=== PATIENT | male | born 1935 | race Caucasian/White ===

== ENCOUNTER → 2021-04-12 09:02 | Outpatient (CLI) | payer MEDICARE, BC, SELFPAY ==
--- NOTE | 2021-04-12 | DI.ECHO.S_ITS ---
[facility]---------[facility] +---------+ : : [address] : : : : [id number] : : : : Phone: [phone]---------+ Echocardiogram Report + + :Name: YAA FREEMAN Study Date: 04/12/2021 Height: 66 in : :[facility] ReadingLocation: Weight: 162 lb : : Gender: Male BSA: 1.8 m2 : :: 1935 Age: 85 yrs BP: 170/98 mmHg: :Reason For Study: MURMUR : :Ordering Physician: SHANTAL, : :ARPAN Performed By: Laisha Swann : :Referring: ARPAN GRAY : + + Interpretation Summary 1) Normal left ventricular thickness, size, wall motion, and systolic function (EF 60-65%). 2) Normal right ventricular size and function. 3) Moderate biatrial enlargement present. 4) There is mild aortic stenosis (valve area 1.5cm2, mean gradient 12mmHg, severity ratio 0.4). 5) Hypertension present during the study (170/98mmHg). 6) No prior Echo available for comparison. Procedure: A two-dimensional transthoracic echocardiogram with color flow and Doppler was performed. The study quality was technically adequate. There is no prior echocardiogram noted for this patient. The patient was in sinus rhythm with heart rates between 49-60 bpm during the exam. Left Ventricle: The left ventricle is normal in size and wall thickness. The ejection fraction is estimated to be 55-60%. Diastolic function could not be accurately assessed due to atrial fibrillation. Right Ventricle: The right ventricle is normal in size and function. Atria: The left atrium is moderately dilated. The right atrium is moderately dilated. There is no Doppler evidence for an interatrial shunt. Mitral Valve: The mitral valve is normal in structure and function. There is mild mitral regurgitation. Aortic Valve: The aortic valve is moderately calcified. The aortic valve is trileaflet. The peak aortic velocity is 2.4 m/sec. The aortic valve mean gradient is 12 mmHg. The calculated aortic valve area is 1.5 cm2. There is mild aortic stenosis. No aortic regurgitation is present. Tricuspid Valve: The tricuspid valve is normal in structure and function. There is mild tricuspid regurgitation. The right ventricular systolic pressure is estimated to be at least 29 mmHg based on an estimated right atrial pressure of 8 mm Hg. Pulmonic Valve: The pulmonic valve leaflets are thin and pliable; valve motion is normal. There is mild pulmonic regurgitation. Great Vessels: The aortic root is normal size. The ascending aorta is at the upper limits of normal in size. The IVC is dilated (diameter is greater than 2.1 cm) yet it collapses greater than 50% with a sniff. This suggests a right atrial pressure of 8 mm Hg. Pericardium/ Pleura There is no pericardial effusion. There is no pleural effusion. MMode/2D Measurements & Calculations LVIDd: 5.2 cm LVOT diam: 2.0 cm LVIDs: 3.4 cm Ao root diam: 3.8 cm FS: 34.5 % asc Aorta Diam: 3.7 cm IVSd: 1.0 cm Ao Arch Diam (Prox Trans): 3.5 cm LVPWd: 0.76 cm LV torres. diameter/BSA (cm/m^2): 2.8 LV sys. diameter/BSA (cm/m^2): 1.8 LA A2 area: 26.6 cm2 RA long axis: 6.5 cm LA A4 area: 26.9 cm2 RA area: 25.1 cm2 LA length (vol): 7.0 cm RA vol: 82.5 ml LA vol: 87.3 ml RA : 45.1 ml/m2 LA vol index: 47.8 ml/m2 IVC diam: 2.4 cm RVD1 (basal): 3.5 cm TAPSE: 2.0 cm Doppler Measurements & Calculations Ao V2 max: 239.8 cm/sec LVOT Max Dimas: 109.7 cm/sec Ao V2 mean: 167.2 cm/sec LV V1 max P.8 mmHg Ao max P.0 mmHg LV V1 VTI: 21.1 cm Ao mean P.3 mmHg DOLLY(I,D): 1.3 cm2 Ao V2 VTI: 53.1 cm DOLLY(V,D): 1.5 cm2 sev ratio: 0.40 DOLLY indexed to BSA (cm^2/m^2): 0.70 MV E max dimas: 72.8 cm/sec TR max dimas: 227.9 cm/sec MV A max dimas: 70.2 cm/sec TR max P.8 mmHg MV E/A: 1.0 PA V2 max: 91.4 cm/sec Med Peak E' Dimas: 7.7 cm/sec PA V2 mean: 60.7 cm/sec E/E' med: 9.5 PA mean P.7 mmHg Lat Peak E' Dimas: 6.3 cm/sec PA pr(Accel): 27.6 mmHg E/E' lat: 11.5 E/e' average: 10.5 MV dec time: 0.23 sec SV(LVOT): 68.0 ml Reading Physician:10:56 AM
== END ==
PROVIDERS: PCP Internal Medicine; Referring Provider Internal Medicine Cardiovascular Disease; Visit Provider Internal Medicine Cardiovascular Disease
DX: I08.1 Rheumatic disorders of both mitral and tricuspid valves (principal); R01.1 Cardiac murmur, unspecified
CPT/HCPCS: 93306